=== PATIENT | female | born 1985 | race Caucasian/White ===

== ENCOUNTER 2022-07-03 21:13 | Emergency (ER) | payer MEDICARE, OTHER ==
[~2022-07-03] VITALS: Ht 154.9 cm; Wt 47.2 kg
--- NOTE | 2022-07-03 21:20 | NUR ---
REYNA 889 FROM HOME FOR C/O N/V/D AND ABD PIAN X 3 DAYS. PATIENT IS DEAF AND MUTE BUT HAS FAMILY MEMBER TO DO SIGN LANGUAGE. PATIENT CAN COMMUNICATE THRU TEXT MESSAGES. PLACED COMFORTABLY IN BED. VITALS CHECKED.
[2022-07-03] MEDS ORDERED: IV NS 0.9% 1,000 ML BAG IV ONE (22:00)
[2022-07-03] MEDS ORDERED: DICYCLOMINE HCL INJ 20 MG/2 ML AMPUL IM ONE ×2 (22:00→22:09)
[2022-07-03] MEDS ORDERED: ONDANSETRON HCL/PF 4 MG/2 ML VIAL IVP ONE (22:00)
[2022-07-03] MEDS ORDERED: ONDANSETRON HCL/PF 4 MG/2 ML VIAL ONE (22:09)
--- NOTE | 2022-07-03 22:13 | NUR ---
IV EMELY INSERTED ON LEFT AC G20. BLOOD DRAWN AND SENT TO LAB
[2022-07-03 22:33] LABS: EOSINOPHILS % (AUTO) 0.1 % (0.0-6.0); HEMATOCRIT 43 % (33-45); HEMOGLOBIN 13.8 g/dL (11.5-14.8); LYMPHOCYTES # (AUTO) 0.2 K/uL (0.8-4.8); LYMPHOCYTES % (AUTO) 1.7 % (20.0-44.0); MEAN CORPUSCULAR HGB CONC 32 g/dl (31.0-36.0); MEAN CORPUSCULAR VOLUME 92 fL (82-100); MONOCYTES # (AUTO) 0.7 K/uL (0.1-1.30); MONOCYTES % (AUTO) 5.4 % (2.0-12.0); NEUTROPHILS # (AUTO) 11.7 K/uL (1.8-8.9); NEUTROPHILS % (AUTO) 92.8 % (43.0-81.0); PLATELET COUNT (AUTO) 217 K/uL (150-450); RED BLOOD CELL COUNT(AUTO) 4.63 MIL/uL (4.0-5.2); WHITE BLOOD COUNT (AUTO) 12.5 K/uL (4.3-11.0)
[2022-07-03 22:53] LABS: ALBUMIN 4.2 g/dL (3.4-5.0); BILIRUBIN,DIRECT 0.2 mg/dL (0.0-0.2); BILIRUBIN,TOTAL 0.5 mg/dL (0.2-1.0); CALCIUM, SERUM 8.7 mg/dL (8.5-10.1); CREATININE 0.8 mg/dL (0.6-1.3); POTASSIUM 3.7 mmol/L (3.5-5.1); TOTAL PROTEIN, SERUM 8.2 g/dL (6.4-8.2)
--- NOTE | 2022-07-03 23:16 | NUR ---
URINE SPECIMEN SENT TO LAB
--- NOTE | 2022-07-03 23:16 | NUR ---
WAIVER SIGNED THAT SHE IS NOT .
--- NOTE | 2022-07-03 23:28 | NUR ---
COVID SWAB DONE AND SENT TO LAB
--- NOTE | 2022-07-03 23:28 | NUR ---
CAME BACK FROM CT DEPT
[2022-07-03 23:53] LABS: BILIRUBIN,URINE NEGATIVE (NEGATIVE); COLOR,URINE YELLOW (YELLOW); LEUKOCYTE ESTERASE ,URINE NEGATIVE (NEGATIVE); NITRITE, URINE NEGATIVE (NEGATIVE); PROTEIN,URINE NEGATIVE (NEGATIVE); UGLUCOSE NEGATIVE (NEGATIVE); UROBILINOGEN,URINE 0.2 EU/dL (0.2)
[2022-07-03 23:58] LABS: BACTERIA,URINE Few /HPF (None Seen); RBC,URINE 0-2 /HPF (0-2); SQUAMOUS EPITHELIAL CELL,UR Many /HPF (None Seen); WBC,URINE 0-2 /HPF (0-3)
[2022-07-04] MEDS ORDERED: ONDA4TAB5 PO (00:10)
--- NOTE | 2022-07-04 00:58 | NUR ---
Patient discharged to home in stable condition. Written and verbal after care instructions given. Patient verbalizes understanding of instruction.
--- NOTE | 2022-07-04 00:58 | NUR ---
IV CANNULA REMOVED
[2022-07-04 00:59] VITALS: BP 100/70
== END 2022-07-04 00:59 | disposition home or self-care (01) ==
LOC: ER 21:35
DX: K52.9 Noninfective gastroenteritis and colitis, unspecified (principal); H91.3 Deaf nonspeaking, not elsewhere classified; Z79.899 Other long term (current) drug therapy; Z91.013 Allergy to seafood; Z20.822 Contact with and (suspected) exposure to COVID-19
CPT/HCPCS: 99285; 74176; 96374; 96361; 87426; 96372; 85025; 80048; 83690; 80076; 84703; 81001; 36415; 85730; J2405; J7030; J0500; C9803